=== PATIENT | male | born 2000 ===

== ENCOUNTER 2020-07-09 16:54 | Emergency (ER) | payer SELFPAY ==
[2020-07-09 17:28] VITALS: BP 125/67
--- NOTE | 2020-07-09 18:40 | Emergency Department Report ---
Upper Extremity - HPI Chief Complaint: Shoulder Injury Stated Complaint: SHOULDER AND WRIST PAIN Time Seen by Provider: 07/09/20 18:38 Upper Extremity: Right Shoulder Occurred When: 4 Days Mechanism: Fall Symptoms: Yes Pain with Movement, No Deformity, No Numbness, No Weakness, No Swelling, No Laceration or Abrasion Other History: 19-year-old [place] male playing football he was tackled and and landed on his right shoulder resulting in pain since the injury. No numbness or tingling. Notes no paresthesia but pain is worse with various range of motion is finding it harder to lift over his head due to the due to the discomfort. ED Review of Systems ROS: Stated complaint: SHOULDER AND WRIST PAIN Other details as noted in HPI Comment: All other systems reviewed and negative ED Past Medical Hx - Past Medical History Previous Medical History?: No - Surgical History Past Surgical History?: No - Medications Home Medications: Home Medications Medication Instructions Recorded Confirmed Last Taken Type Ketorolac [Toradol] 10 mg PO Q6H PRN #20 tablet 07/09/20 Unknown Rx Upper Extremity Exam - Exam General: Vital signs noted. No distress. Alert and acting appropriately. Head and Torso: No HEENT Abnormality, No Neck Tenderness, No Chest/Lungs Abnormality, No Abdominal Tenderness, No Back Tenderness Shoulder Exam: Yes Shoulder Tenderness, Yes AC Joint Tenderness, No Clavicle Tenderness, No Normal Range of Motion in Shoulder, No Shoulder Deformity Arm Exam: No Arm/Humerus Tenderness, No Arm Deformity Elbow: No Elbow Tenderness, No Normal Range of Motion in Elbow, No Elbow Deformity Forearm: No Forearm Tenderness, No Forearm Deformity, No Pain with Pronation, No Pain with Supination Wrist: Yes Normal ROM in Wrist, No Wrist Tenderness, No Wrist Deformity, No Snuffbox Tenderness, No Pain with Axial Thumb Compression Hand: Yes Normal ROM in Digit(s), No Hand Tenderness, No Hand Deformity, No Digit Tenderness, No Digit(s) Deformity, No Tendon Dysfunction CMS Exam: No Broken Skin, No Normal Distal Pulses, No Normal Capillary Refill, No Normal Distal Sensation ED Course Vital Signs 07/09/20 17:21 Temperature 98.3 F Pulse Rate 65 Respiratory 14 Rate Blood Pressure 125/67 [Right] O2 Sat by Pulse 100 Oximetry ED Medical Decision Making - Radiology Data Radiology results: report reviewed Referring Physician:AROLDO MOHANPatient Name:MIRTHA BARTLETTPatient ID:[id number] of :[id number]:MaleAccession:[id number] Date:3898-43-61Ofxrog Status:Finalized Findings [facility] [address] [place] [address] XRay Report Signed Patient: MIRTHA BARTLETT MR#: [id number] : 2000 Acct:[id number] Age/Sex: 19 / M ADM Date: 07/09/20 Loc: ED Attending Dr: Ordering Physician: KYUNG HAYNES Date of Service: 07/09/20 Procedure(s): XR shoulder 2+V RT Accession Number(s): [id number] cc: KYUNG HAYNES Fluoro Time In Minutes: CLINICAL DATA: Pain for one week after hurting himself playing football TECHNICAL DATA: AP internal, AP external, and Y views were obtained of the shoulder. FINDINGS: There is no acute fracture. The glenoid fossa humeral head articulation is normal. There is no acromioclavicular joint widening or offset. The coracoclavicular distance is normal. There are no significant degenerative changes. IMPRESSION: No acute radiographic abnormality. Signer Name: Darron Contreras MD Signed: 07/09/2020 7:50 PM Workstation Name: [id number] Transcribed By: WG Dictated By: Darron Contreras MD Electronically Authenticated By: Darron Contreras MD Signed Date/Time: 07/09/201949 DD/ 48 TD/TT: Critical care attestation.: If time is entered above; I have spent that time in minutes in the direct care of this critically ill patient, excluding procedure time. ED Disposition Clinical Impression: Right shoulder pain Disposition: DC-01 TO HOME OR SELFCARE Is pt being admited?: No Does the pt Need Aspirin: No Condition: Stable Instructions: How to Use Cold Therapy, [id number], Shoulder Pain, [id number], Shoulder Pain, Acromioclavicular Separation, How to Use Cold Therapy Prescriptions: Ketorolac [Toradol] 10 mg PO Q6H PRN #20 tablet PRN Reason: Pain Referrals: [facility] [Provider Group] - 3-5 Days
--- NOTE | 2020-07-09 19:54 | XRay Report ---
CLINICAL DATA: Pain for one week after hurting himself playing football TECHNICAL DATA: AP internal, AP external, and Y views were obtained of the shoulder. FINDINGS: There is no acute fracture. The glenoid fossa humeral head articulation is normal. There is no acromi oclavicular joint widening or offset. The coracoclavicular distance is normal. There are no significa nt degenerative changes. IMPRESSION: No acute radiographic abnormality. Signer Name: Darron Contreras MD Signed: 07/09/2020 7:50 PM Workstation Name: [id number]
== END 2020-07-09 18:50 | disposition home or self-care (01) ==
LOC: ED 16:54
DX: M25.512 Pain in left shoulder (principal)
CPT/HCPCS: 99283